=== PATIENT | male | born 1955 | race Caucasian/White ===

== ENCOUNTER 2019-04-07 17:48 | Inpatient (IN) | payer OTHER ==
[2019-04-07] MEDS ORDERED: methylPREDNISolone 125 MG* 2 ML VIAL IV ONE (19:59)
[2019-04-07] MEDS ORDERED: Albuterol/Ipratropium NEB.SOL* Albuterol 2.5 MG/Ipratropium 0.5 MG 3 ML INH ONE (19:59)
[2019-04-07 20:04] LABS: Hematocrit 62 % (42-52); Hemoglobin 21.5 g/dL (14.0-18.0); Mean Corpuscular HGB Conc 35 g/dL (31-36); Mean Corpuscular Hemoglobin 34 pg (27-31); Mean Corpuscular Volume 97 fL (80-94); Mean Platelet Volume 9.4 fL (7.4-10.4); Platelet Count 262 10^3/uL (150-450); Red Blood Count 6.42 10^6 /uL (4.18-5.48); Red Cell Distribution Width 15 % (10-15)
[2019-04-07 20:08] LABS: Albumin 4.7 g/dL (3.2-5.2); Albumin/Globulin Ratio 0.9 (1-3); C Reactive Protein 72.27 mg/L (<8.01); Calcium 10.3 mg/dL (8.6-10.3); EGFR African American 83.8 (>60); EGFR Non-African American 69.3 (>60); Potassium 4.9 mmol/L (3.5-5.0); Total Bilirubin 2.4 mg/dL (0.2-1.0); Total Protein 9.7 g/dL (6.4-8.9)
[2019-04-07 20:15] LABS: Troponin I 0.04 ng/mL (<0.04)
[2019-04-07] MEDS ORDERED: Azithromycin 500 mg/250 ml NS 500 MG/250 ML BAG IVPB ONE (21:14)
[2019-04-07] MEDS ORDERED: NS 0.9% 1000 ML** 1,000 ML IV ONE ×2 (21:14→22:36)
--- NOTE | 2019-04-07 21:14 | ED ---
Shortness of Breath - HPI Summary HPI Summary: Patient with history of COPD and home O2 when necessary complains of increase in chronic cough, mild increase in chronic SOB, chills sweats, sore throat and decreased O2 saturation. Patient states baseline O2 saturation on room air 90- 94%. Today the patient O2 sats between 85% per respiratory therapist that visits patient at house. Denies fever, CP, and/V/D, abdominal pain, change in urine, change in BM, increase in peripheral edema. Medical history COPD, HTN, hyperlipidemia. - History of Current Complaint Chief Complaint: EDShortnessOfBreath Time Seen by Provider: 04/07/19 18:31 Hx Obtained From: Patient Onset/Duration: Gradual Onset, Lasting Days Timing: Constant Current Severity: Mild Dyspnea At: Exertion Alleviating Factors: Nothing Associated Signs & Symptoms: Cough (Nonproductive), Chills - Allergy/Home Medications Allergies/Adverse Reactions: Allergies Allergy/AdvReac Type Severity Reaction Status Date / Time No Known Allergies Allergy Verified 09/03/14 09:58 Home Medications: Home Medications Albuterol HFA INHALER* [Ventolin HFA Inhaler*] 2 puff INH Q6H PRN 04/07/19 [ History Confirmed 04/07/19] Atenolol TAB* [Tenormin TAB* 25 MG] 25 mg PO DAILY 04/07/19 [History Confirmed 04/07/19] Pravastatin (NF) [Pravachol (NF)] 40 mg PO DAILY 04/07/19 [History Confirmed ] Tiotropium CAP.INH (NF) [Spiriva CAP.INH*] 1 inh INH DAILY 04/07/19 [History Confirmed 04/07/19] PMH/Surg Hx/FS Hx/Imm Hx Endocrine/Hematology History: Denies: Hx Anticoagulant Therapy Cardiovascular History: Reports: Hx Hypercholesterolemia, Hx Hypertension Respiratory History: Reports: Hx Chronic Obstructive Pulmonary Disease (COPD) History: Denies: Hx Dialysis Sensory History: Denies: Hx Eye Prosthesis Opthamlomology History: Denies: Hx Legally Blind EENT History: Denies: Hx Deafness - Surgical History Surgery Procedure, Year, and Place: R knee tendon repair, R foot foreign object removal Infectious Disease History: No Infectious Disease History: Denies: Traveled Outside the [place] in Last 30 Days - Family History Known Family History: Positive: Cardiac Disease, Diabetes - Social History Alcohol Use: None Substance Use Type: Reports: None Hx Tobacco Use: Yes Smoking Status (MU): Current Some Day Smoker Type: Cigarettes Review of Systems Positive: Chills Eyes: Negative ENT: Negative Cardiovascular: Negative Positive: Shortness Of Breath, Cough Gastrointestinal: Negative Genitourinary: Negative Musculoskeletal: Negative Skin: Negative Neurological: Negative Psychological: Normal All Other Systems Reviewed And Are Negative: Yes Physical Exam - Summary Physical Exam Summary: Mild bilateral pedal edema. Lung sounds clear but decreased. Triage Information Reviewed: Yes Vital Signs On Initial Exam: Initial Vitals Temp Pulse Resp BP Pulse Ox 99.2 F 77 21 128/54 89 04/07/19 18:08 04/07/19 18:08 04/07/19 18:08 04/07/19 18:08 04/07/19 18:08 Vital Signs Reviewed: Yes Appearance: Positive: Well-Appearing Skin: Positive: Warm Head/Face: Positive: Normal Head/Face Inspection Eyes: Positive: Normal ENT: Positive: Normal ENT inspection Neck: Positive: Supple Respiratory/Lung Sounds: Positive: Decreased Breath Sounds Cardiovascular: Positive: Normal Abdomen Description: Positive: Nontender Musculoskeletal: Positive: Normal Neurological: Positive: Normal Psychiatric: Positive: Normal AVPU Assessment: Alert - Monet Coma Scale Best Eye Response: 4 - Spontaneous Best Motor Response: 6 - Obeys Commands Best Verbal Response: 5 - Oriented Coma Scale Total: 15 Procedures - Sedation Patient Received Moderate/Deep Sedation with Procedure: No Diagnostics - Vital Signs Vital Signs Temp Pulse Resp BP Pulse Ox 04/07/19 20:29 101.1 F 04/07/19 20:00 108 32 82 04/07/19 19:44 102 34 165/75 84 04/07/19 19:13 98 34 121/94 85 04/07/19 19:11 30 04/07/19 18:42 76 19 137/54 93 04/07/19 18:12 80 23 128/54 91 04/07/19 18:11 79 23 92 04/07/19 18:08 99.2 F 77 21 128/54 89 - Laboratory Lab Results: Lab Results 04/07/19 04/07/19 04/07/19 Range/Units 19:38 19:38 19:38 WBC 24.0 H (3.5-10.8) 10^3/uL RBC 6.42 H (4.18-5.48) 10^6 /uL Hgb 21.5 H (14.0-18.0) g/dL Hct 62 H (42-52) % MCV 97 H (80-94) fL MCH 34 H (27-31) pg MCHC 35 (31-36) g/dL RDW 15 (10-15) % Plt Count 262 (150-450) 10^3/uL MPV 9.4 (7.4-10.4) fL Neut % (Auto) Pending Lymph % (Auto) Pending Troup % (Auto) Pending Eos % (Auto) Pending Baso % (Auto) Pending Absolute Neuts (auto) Pending Absolute Lymphs (auto) Pending Absolute Monos (auto) Pending Absolute Eos (auto) Pending Absolute Basos (auto) Pending Absolute Nucleated RBC Pending Nucleated RBC % Pending D-Dimer, Quantitative (Less Than 230) ng/mL Sodium 135 (135-145) mmol/L Potassium 4.9 (3.5-5.0) mmol/L Chloride 96 L (101-111) mmol/L Carbon Dioxide 28 (22-32) mmol/L Anion Gap 11 (2-11) mmol/L BUN 13 (6-24) mg/dL Creatinine 1.08 (0.67-1.17) mg/dL Est GFR ( Amer) 83.8 (>60) Est GFR (Non-Af Amer) 69.3 (>60) BUN/Creatinine Ratio 12.0 (8-20) Glucose 105 H (70-100) mg/dL Calcium 10.3 (8.6-10.3) mg/dL Total Bilirubin 2.40 H (0.2-1.0) mg/dL AST 21 (13-39) U/L ALT 19 (7-52) U/L Alkaline Phosphatase 129 H (34-104) U/L Troponin I (<0.04) ng/mL C-Reactive Protein 72.27 H (<8.01) mg/L B-Natriuretic Peptide 708 H (<=100) pg/mL Total Protein 9.7 H (6.4-8.9) g/dL Albumin 4.7 (3.2-5.2) g/dL Globulin 5.0 H (2-4) g/dL Albumin/Globulin Ratio 0.9 L (1-3) 04/07/19 04/07/19 Range/Units 19:38 19:38 WBC (3.5-10.8) 10^3/uL RBC (4.18-5.48) 10^6 /uL Hgb (14.0-18.0) g/dL Hct (42-52) % MCV (80-94) fL MCH (27-31) pg MCHC (31-36) g/dL RDW (10-15) % Plt Count (150-450) 10^3/uL MPV (7.4-10.4) fL Neut % (Auto) Lymph % (Auto) Troup % (Auto) Eos % (Auto) Baso % (Auto) Absolute Neuts (auto) Absolute Lymphs (auto) Absolute Monos (auto) Absolute Eos (auto) Absolute Basos (auto) Absolute Nucleated RBC Nucleated RBC % D-Dimer, Quantitative 479 H (Less Than 230) ng/mL Sodium (135-145) mmol/L Potassium (3.5-5.0) mmol/L Chloride (101-111) mmol/L Carbon Dioxide (22-32) mmol/L Anion Gap (2-11) mmol/L BUN (6-24) mg/dL Creatinine (0.67-1.17) mg/dL Est GFR ( Amer) (>60) Est GFR (Non-Af Amer) (>60) BUN/Creatinine Ratio (8-20) Glucose (70-100) mg/dL Calcium (8.6-10.3) mg/dL Total Bilirubin (0.2-1.0) mg/dL AST (13-39) U/L ALT (7-52) U/L Alkaline Phosphatase (34-104) U/L Troponin I 0.04 H* (<0.04) ng/mL C-Reactive Protein (<8.01) mg/L B-Natriuretic Peptide (<=100) pg/mL Total Protein (6.4-8.9) g/dL Albumin (3.2-5.2) g/dL Globulin (2-4) g/dL Albumin/Globulin Ratio (1-3) Result Diagrams: 04/07/19 19:38 04/07/19 19:38 Lab Statement: Any lab studies that have been ordered have been reviewed, and results considered in the medical decision making process. Course/Dx - Course Course Of Treatment: Patient with history of COPD and home O2 when necessary complains of increase in chronic cough, mild increase in chronic SOB, chills sweats, sore throat and decreased O2 saturation. Patient states baseline O2 saturation on room air 90-94%. Today the patient O2 sats between 85% per respiratory therapist that visits patient at house. Denies fever, CP, and/V/D, abdominal pain, change in urine, change in BM, increase in peripheral edema. Medical history COPD, HTN, hyperlipidemia. Patient O2 sats fluctuating. 86% on room air. 92% on 3 L. respiration rate between 18 and 30. Temperature 101.3. Heart rate 112. Blood pressure stable. WBC 24. Hemoglobin 12.5. D- dimer 479. CTA negative for PE. Total Bili 2.3. Troponin 1 0.04. Troponin 2 0.03. BNP 708. Most recent prior labs on file from 2015, all normal. Chest x- ray shows no acute process. EKG sinus tachycardia, with rate 112, similar to prior. Patient admitted to hospitalist for hypoxia, respiratory infection, sepsis. Rocephin 1 g IV. Azithromycin 500 mg IV. 2 L normal saline. - Diagnoses Provider Diagnoses: Sepsis, Respiratory infection, Hypoxia Discharge ED - Sign-Out/Discharge Documenting (check all that apply): Patient Departure - Discharge Plan Condition: Fair Disposition: ADMITTED TO [facility] - Billing Disposition and Condition Condition: FAIR Disposition: Admitted to [facility]
[2019-04-07] MEDS ORDERED: cefTRIAXone(*) 1 GM in NS 0.9% 50 ML* 50 ML IVPB ONE (21:15)
[2019-04-07 21:16] LABS: ABS Basophils 0.1 10^3/ul (0-0.2); ABS Lymphocytes 1.2 10^3/ul (1.0-4.8); ABS Monocytes 0.9 10^3/ul (0-0.8); ABS Neutrophils 21.8 10^3/ul (1.5-7.7); Eosinophil % 0.1 %; Lymphocyte % 5.1 %; Nucleated Red Blood Cells % 0.1
[2019-04-07] MEDS ORDERED: Iohexol 350* (CONTRAST) 500 ML MDV IV ONE (21:19)
[2019-04-07 21:54] LABS: Urine Appearance Clear; Urine Bacteria Absent (Absent); Urine Bilirubin Negative (Negative); Urine Blood 1+ (Negative); Urine Color Amber; Urine Glucose Negative (Negative); Urine Ketones Negative (Negative); Urine Nitrite Negative (Negative); Urine Protein 3+(>=500 mg/dL) (Negative); Urine Red Blood Cell Trace(0-2/hpf) (Absent); Urine Specific Gravity 1.016 (1.010-1.030); Urine Urobilinogen Negative (Negative); Urine White Blood Cell Trace(0-5/hpf) (Absent)
[2019-04-07] MEDS ORDERED: Acetaminophen TAB* 325 MG PO PRN (22:42)
[2019-04-07] MEDS: Atorvastatin* 40 MG TAB PO SCH (22:42)
[2019-04-08] MEDS: Enoxaparin(*) 40 MG/0.4 ML SYR SUBCUT SCH ×2 (01:00→21:38)
[2019-04-08] MEDS: Aspirin 81 mg CHEW TAB* 81 MG TAB.CHEW PO SCH ×2 (01:00→08:55)
--- NOTE | 2019-04-08 02:39 | HP ---
HISTORY AND PHYSICAL: DATE OF ADMISSION: 04/07/19 ADMITTING PROVIDER: Ghulam Denney MD PRIMARY CARE PROVIDER: Dr. Tu Villanueva of the CT System CHIEF COMPLAINT: Shortness of breath, chills, productive cough, stomach upset. HISTORY OF PRESENT ILLNESS: Adrian Chapman is a 64-year-old male with past medical history of COPD with chronic obstructive pulmonary disease and chronic intermittent oxygen use( 1-2 L p.r.n. and at q.h.s)., hypertension, morbid obesity, chronic constipation. He has been in his normal state of health, but has had some increased lower extremity edema for the last few days. He developed chills and some feeling of being sick to his stomach a few days ago which self- resolved and then chills returned on the morning of admission and he has been requiring more oxygen at home. His respiratory therapist noted him to be desatting to 84% to 85% on his 1 to 2 L. He denies any chest pain, palpitations. He has been more short of breath over the last few days. He has never seen a numerical tool programmer or a locomotive repairer diesel or had pulmonary function test done or an echocardiogram done per his knowledge. This has been a few months since he last saw Dr. Villanueva and within the last year or two his red blood cell count was noted to be elevated. [place] [facility] included a temperature of 99.2, heart rate 77, blood pressure 120/54, satting 89 % on 2 L. Chest x-ray formal read is pending, but concern for some pulmonary edema per my read. He had a leukocytosis of 24.0, hemoglobin 21.5, hematocrit of 62, BNP of 708, CRP of 72, initial troponin of 0.04, T. bili of 2.40. He was referred to hospitalist service for acute on chronic hypoxic respiratory failure and has since had a fever of 101.1 and became tachycardic to 110. The D -dimer was asked to be added has returned moderately elevated at [address] chest angiogram revealed no pulmonary embolism but did find some mild interstitial prominence with minimal patchy infiltrates and fibro-atelectatic changes and there is a focal atelectasis or consolidation in the medial basal left lower lobe. No borderline mediastinal or hilar nodes. He got ceftriaxone and azithromycin in the emergency room. Unfortunately, blood cultures were not obtained before antibiotics were delivered. . He was given 1 L of normal saline bolus in the emergency room. PAST MEDICAL HISTORY: 1. COPD with chronic intermittent hypoxic respiratory failure. 2. Hypertension. 3. Hyperlipidemia. 4. Obesity. MEDICATIONS: Include (this is somewhat incomplete/unverified list as he is a poor historian): 1. Albuterol 2 puffs inhaled q.6 hours p.r.n. 2. Spiriva 1 inhaled daily. 3. Pravastatin 40 mg p.o. daily. 4. Atenolol 25 mg p.o. daily. 5. Claritin 10 mg p.o. daily. 6. He also has another inhaler, possibly Dulera which he uses daily. ALLERGIES: No known drug allergies. FAMILY HISTORY: His mother at 57 of acute kidney failure. Father at age 49 of myocardial infarction. He has 2 sisters and 2 sons. SOCIAL HISTORY: The patient is a former smoker of 25 years, one and half packs per day quit 5 years ago. He denies any current alcohol or drug use. Formerly recreational marijuana. He is on disability. He lives with 2 roommates and desires one of them Jolly Amador to be his medical surrogate, . He desires to be a DNR/DNI. REVIEW OF SYSTEMS: A complete 14-point review of systems was negative, except as per HPI. He denies any abdominal pain. He does sleep in the hospital bed for last 5 years propped up. He generally does not have any dyspnea on exertion with stairs. He denies any changes in weight and he does have a blood pressure cuff, he says it is usually well controlled at home. PHYSICAL EXAMINATION GENERAL APPEARANCE: In no acute distress, but unkempt appearing with the long toenails and very dirty feet. VITAL SIGNS: Initially, 99.2, T max of 101.1, heart rate 78, heart rate max of 110, respiratory between 18 and 32, blood pressure initially 128/54, low at 82/ 53. HEENT: Normocephalic, atraumatic. Pupils are equal, round, and reactive to light. Extraocular motions are intact. No scleral icterus. NECK: Supple. LUNGS: With some rhonchi at the left mid and lower lungs and rales at bilateral bases and slight expiratory wheeze. CARDIAC: Tachycardic, regular rhythm. Regular rate. No murmurs, rubs, or gallops. Though somewhat difficult exam. ABDOMEN: Obese, soft, nontender, slightly distended. No rebound or guarding. EXTREMITIES: Warm, well perfused. There is 1+ edema bilaterally. NEURO: Cranial nerves II through XII grossly intact. Moves all extremities. DIAGNOSTIC STUDIES/LAB DATA: Labs: White count 24.0, RBC max 6.42, hemoglobin 21.5, hematocrit 62, MCV 97, platelets 262. Absolute neutrophils 21.8, D-dimer 478. Sodium 135, potassium 4.9, chloride 96, carbon dioxide 28, BUN 13, creatinine 1.08, glucose 105. Total bili 2.4, calcium 10.3, AST 21, ALT 19, alk phos 129. Troponin 0.04, CRP 72, BNP 708. Total protein 9.7, albumin 4.7, globulin 5.0, Urinalysis, 3+ protein, 1+ blood. Imaging: Chest x-ray formal read pending, but per my read consistent with some pulmonary interstitial edema. CTA chest demonstrated: 1. mild interstitial prominence with minimal patchy infiltrates and fibro- atelectatic change. There is a focal atelectasis or consolidation in the middle base of left lower lobe. 2. Borderline mediastinal and hilar nodes. 3. No essential pulmonary embolism is identified. EKG demonstrates sinus tachycardia. Normal axis. T-wave inversions in V1 through V3. Some ST depressions in V3. T-wave inversions in III and AVF. QTc 426. ASSESSMENT AND PLAN: Adrian Chapman is a 64-year-old male with a past history of chronic obstructive pulmonary disease with chronic intermittent hypoxic respiratory failure, hypertension, obesity, note of elevated RBC in the last few years, but he is unfamiliar with the term polycythemia vera. He is presenting with acute on chronic hypoxic respiratory failure and sepsis developing fevers in the emergency room, tachycardia, leukocytosis and possible infiltrate in the medial basilar left lower lobe. Unfortunately, blood cultures were not obtained prior to administration of ceftriaxone, azithromycin. We will continue those. Add Strep pneumoniae and legionella urine antigen testing. Get a sputum culture if able. Status post 1 L normal saline for blood pressure dip. I am going to be cautious with IV fluids given his elevated BNP, concern for new onset heart failure, as well get an echocardiogram for that. He has quite elevated RBC, hemoglobin, and hematocrit levels as well as paraprotein gap of 5.0. I am going to get serum EPO and JAK2 mutation antibody, SPEP, UPEP. Try to get records from Dr. Villanueva though it probably will be challenging over the weekend. For his COPD, continue Spiriva, albuterol p.r.n. and Dulera (which he may or may not be on at home). We will try to clarify what his daily inhaler is. I am not starting him on steroids at this time, but could consider that depending on clinical course. I am going to get also a lipid panel and hemoglobin A1c. Given his elevated troponin, we will trend troponin every 3 hours. He denies any chest pain. We will give statin formulary substitute of atorvastatin 40 mg , also give him aspirin 81 mg now for his potential polycythemia vera and elevated troponin. I am also getting an echocardiogram for his new suspected heart failure. He has elevated total bili, we will repeat LFTs in the morning, currently no abdominal pain. There may be some hepatic congestion. He can eat a heart healthy diet. Desires his roommate Jolly Amador [phone] to be his medical surrogate. He desires to be DNR/DNI. We will have to fill out a new [facility]OL[facility] paperwork for him. [id number]/[facility] #: [id number] JAVIER
[2019-04-08 06:49] LABS: Hematocrit 53 % (42-52); Hemoglobin 18.1 g/dL (14.0-18.0); Mean Corpuscular HGB Conc 34 g/dL (31-36); Mean Corpuscular Hemoglobin 33 pg (27-31); Mean Corpuscular Volume 96 fL (80-94); Mean Platelet Volume 9.3 fL (7.4-10.4); Platelet Count 202 10^3/uL (150-450); Red Blood Count 5.46 10^6 /uL (4.18-5.48); Red Cell Distribution Width 15 % (10-15); White Blood Count 26.9 10^3/uL (3.5-10.8)
[2019-04-08 06:55] LABS: INR 1.57 (0.82-1.09)
[2019-04-08 07:08] LABS: Albumin 3.3 g/dL (3.2-5.2); Albumin/Globulin Ratio 0.9 (1-3); BUN/Creatinine Ratio 19.8 (8-20); Calcium 8.7 mg/dL (8.6-10.3); EGFR African American 116.8 (>60); EGFR Non-African American 96.6 (>60); Globulin 3.5 g/dL (2-4); HDL Cholesterol 19.4 mg/dL; Indirect Bilirubin 1.3 mg/dL (0.3-1.0); Potassium 4.1 mmol/L (3.5-5.0); Total Bilirubin 1.9 mg/dL (0.2-1.0); Total Protein 6.8 g/dL (6.4-8.9)
[2019-04-08 07:20] LABS: ABS Neutrophils 23.2 10^3/ul (1.5-7.7)
[2019-04-08 07:21] LABS: ABS Basophils 0.1 10^3/ul (0-0.2); ABS Lymphocytes 1.8 10^3/ul (1.0-4.8); ABS Monocytes 1.7 10^3/ul (0-0.8); Eosinophil % 0.1 %; Lymphocyte % 6.8 %
[2019-04-08] MEDS: Mometasone/Formoter 200/5 MDI INH SCH ×2 (08:49→20:00)
[2019-04-08] MEDS: Cetirizine* 10 MG TAB PO SCH (08:55)
[2019-04-08] MEDS ORDERED: Influenza VAC *QUAD* 2019-20* 0.5 ML SYRINGE IM ONE (09:00)
[2019-04-08] MEDS ORDERED: Pneumococcal *Vac Polyvalent 0.5 ML VIAL IM ONE (09:00)
[2019-04-08] MEDS: SPIRIVA Respimat* (tiotropium) 2.5 mcg/inh Inhaler INH SCH (11:50)
[2019-04-08] MEDS ORDERED: Senna TAB 8.6 mg* TAB PO PRN (13:29)
[2019-04-08] MEDS ORDERED: Docusate LIQ* 100 MG/10 ML UDC PO PRN (13:35)
--- NOTE | 2019-04-08 13:36 | PN ---
Subjective Date of Service: 04/08/19 Interval History: HD 2 on 04/08 64 y/o M with PMH of COPD-home O2(prn at day and 1.5-2L) with chronic respiratory failure, HTN, Morbid Obesity,Chronic constipation presented with increasing LE edema, SOB and chills and cold. Found to have tachycardia, fever and leucocytosis and elevated CRP. D/D- sepsis 2/2 pneumonia, CHF No acute overnight events. VS stable Feels he is improving a lot still has some SOB; has mild productive cough for 1 month No chest pain, fever or palpitation. Objective Active Medications: Acetaminophen (Tylenol Tab*) 650 mg PO Q6H PRN PRN Reason: PAIN - MILD Aspirin (Aspirin 81 Mg Chew Tab*) 81 mg PO DAILY [facility] Last Admin: 04/08/19 08:55 Dose: 81 mg Atorvastatin Calcium (Lipitor*) 40 mg PO 1700 [facility] Last Admin: 04/07/19 22:42 Dose: 40 mg Cetirizine HCl (Zyrtec*) 10 mg PO DAILY [facility] Last Admin: 04/08/19 08:55 Dose: 10 mg Enoxaparin Sodium (Lovenox(*)) 40 mg SUBCUT BEDTIME [facility] Last Admin: 04/08/19 01:00 Dose: 40 mg Ceftriaxone Sodium 1 gm/ (Sodium Chloride) 50 mls @ 100 mls/hr IVPB Q24H DEWEY Azithromycin (Zithromax 500 Mg/250 Ml) 500 mg in 250 mls @ 250 mls/hr IVPB Q24H [facility] Mometasone Furoate/Formoterol Fumar (Dulera 200/5 Mdi*) 2 puff INH BID [facility] Last Admin: 04/08/19 08:49 Dose: 2 puff Senna/Docusate Sodium (Sennokot-S(Nf)) 1 tab PO DAILY PRN PRN Reason: CONSTIPATION Sodium Chloride (Sodium Chloride 0.65% Nasal [place]*) 2 spray BOTH NARES QID [facility] Tiotropium [place] (Spiriva Respimat 2.5 Mcg) 2 puff INH DAILY [facility] Last Admin: 04/08/19 11:50 Dose: Not Given Vital Signs - 8 hr 04/08/19 04/08/19 04/08/19 07:15 08:00 08:50 Temperature 97.2 F Pulse Rate 73 80 Respiratory 18 18 16 Rate Blood Pressure 99/55 (mmHg) O2 Sat by Pulse 95 94 Oximetry 04/08/19 11:15 Temperature 98.3 F Pulse Rate 67 Respiratory 16 Rate Blood Pressure 111/55 (mmHg) O2 Sat by Pulse 96 Oximetry Oxygen Devices in Use Now: OxyMask Exam: Patient is sitting on a bed with no acute distress. HEENT: Normocephalic and atraumatic Lungs: Crackle heard on b/l lower lungs; Left>Right Heart: S1/S2 heard with no murmur Abdomen: SOft, distended and nontender. Normal BS heard Extremities: 2+ pitting edema on b/l lower limb with chronic venous stasis changes Neuro: Alert, oriented and conscious Result Diagrams: 04/08/19 06:19 04/08/19 06:19 Additional Lab and Data: Lab Results 04/07/19 04/07/19 04/07/19 Range/Units 19:38 19:38 19:38 WBC 24.0 H (3.5-10.8) 10^3/uL RBC 6.42 H (4.18-5.48) 10^6 /uL Hgb 21.5 H (14.0-18.0) g/dL Hct 62 H (42-52) % MCV 97 H (80-94) fL MCH 34 H (27-31) pg MCHC 35 (31-36) g/dL RDW 15 (10-15) % Plt Count 262 (150-450) 10^3/uL MPV 9.4 (7.4-10.4) fL Neut % (Auto) Pending Lymph % (Auto) Pending Clarke % (Auto) Pending Eos % (Auto) Pending Baso % (Auto) Pending Absolute Neuts (auto) Pending Absolute Lymphs (auto) Pending Absolute Monos (auto) Pending Absolute Eos (auto) Pending Absolute Basos (auto) Pending Absolute Nucleated RBC Pending Nucleated RBC % Pending D-Dimer, Quantitative (Less Than 230) ng/mL Sodium 135 (135-145) mmol/L Potassium 4.9 (3.5-5.0) mmol/L Chloride 96 L (101-111) mmol/L Carbon Dioxide 28 (22-32) mmol/L Anion Gap 11 (2-11) mmol/L BUN 13 (6-24) mg/dL Creatinine 1.08 (0.67-1.17) mg/dL Est GFR ( Amer) 83.8 (>60) Est GFR (Non-Af Amer) 69.3 (>60) BUN/Creatinine Ratio 12.0 (8-20) Glucose 105 H (70-100) mg/dL Calcium 10.3 (8.6-10.3) mg/dL Total Bilirubin 2.40 H (0.2-1.0) mg/dL AST 21 (13-39) U/L ALT 19 (7-52) U/L Alkaline Phosphatase 129 H (34-104) U/L Troponin I (<0.04) ng/mL C-Reactive Protein 72.27 H (<8.01) mg/L B-Natriuretic Peptide 708 H (<=100) pg/mL Total Protein 9.7 H (6.4-8.9) g/dL Albumin 4.7 (3.2-5.2) g/dL Globulin 5.0 H (2-4) g/dL Albumin/Globulin Ratio 0.9 L (1-3) 04/07/19 04/07/19 Range/Units 19:38 19:38 WBC (3.5-10.8) 10^3/uL RBC (4.18-5.48) 10^6 /uL Hgb (14.0-18.0) g/dL Hct (42-52) % MCV (80-94) fL MCH (27-31) pg MCHC (31-36) g/dL RDW (10-15) % Plt Count (150-450) 10^3/uL MPV (7.4-10.4) fL Neut % (Auto) Lymph % (Auto) Clarke % (Auto) Eos % (Auto) Baso % (Auto) Absolute Neuts (auto) Absolute Lymphs (auto) Absolute Monos (auto) Absolute Eos (auto) Absolute Basos (auto) Absolute Nucleated RBC Nucleated RBC % D-Dimer, Quantitative 479 H (Less Than 230) ng/mL Sodium (135-145) mmol/L Potassium (3.5-5.0) mmol/L Chloride (101-111) mmol/L Carbon Dioxide (22-32) mmol/L Anion Gap (2-11) mmol/L BUN (6-24) mg/dL Creatinine (0.67-1.17) mg/dL Est GFR ( Amer) (>60) Est GFR (Non-Af Amer) (>60) BUN/Creatinine Ratio (8-20) Glucose (70-100) mg/dL Calcium (8.6-10.3) mg/dL Total Bilirubin (0.2-1.0) mg/dL AST (13-39) U/L ALT (7-52) U/L Alkaline Phosphatase (34-104) U/L Troponin I 0.04 H* (<0.04) ng/mL C-Reactive Protein (<8.01) mg/L B-Natriuretic Peptide (<=100) pg/mL Total Protein (6.4-8.9) g/dL Albumin (3.2-5.2) g/dL Globulin (2-4) g/dL Albumin/Globulin Ratio (1-3) Assess/Plan/Problems-Billing Assessment: 64 y/o M with h/o COPD, Chronic respiratory failure, HTN, Morbid obesity, chronic constipation presented with sepsis 2/2 to pneumonia with suspicion of CHF. on ceftriaxone and azithro(day 2 on 04/08) - Patient Problems (1) Sepsis Current Visit: Yes Status: Acute Comment: -fever, tachycardia and leucocytosis -lactic acid normal -blood culture sent -fever, tachy resolved -2/2 to pneumonia -IV fluid received -On ceftriaxone and azithro (day 2 on 04/08) (2) Pneumonia Current Visit: No Status: Acute Priority: High Onset Date: 09/01/14 Code (s): J18.9 - PNEUMONIA, UNSPECIFIED ORGANISM SNOMED Code(s): 747956707 Comment: -has cough for weeks; although mild productive -fever, chills and leucocytosis -crackles heard -CXR- cardiomegaly with possibility of CHF -CTA- Focal atelectaiss or consolidationin left lower lobe; borderline mediatinal and hilar nodes. -urine negative for legionella and strept -sputum stain- gram +ve cocci and bacilli and gram -ve bacilli -sputum culture pending -On ceftriaxone and azithro(day 2) (3) Swelling of lower extremity Current Visit: Yes Status: Acute Code(s): M79.89 - OTHER SPECIFIED SOFT TISSUE DISORDERS SNOMED Code(s): 320179030 Comment: - Has b/l lower extremity edema with b/l crackles with cxr showing chf and elevated BNP. -no past echo -elevated troponin- downtrending; could be demand ischemia; no chest pain -will order echo-pending (4) Polycythemia Current Visit: Yes Status: Acute Code(s): D75.1 - SECONDARY POLYCYTHEMIA SNOMED Code(s): 396680346 Comment: -hb 21.5 and hematocrit is 62 -on and off since 2014. -could be secondary absolute polycythemia; 2/2 to chronic pulmonary dz, OHS, LATANYA -r/o primary causes-JAK2 study pending -erythropoitein level pending. -given his obesity- may have undiagnosed LATANYA/OHS -will order overnight pulse oximetry (5) COPD (chronic obstructive pulmonary disease) Current Visit: No Status: Chronic Code(s): J44.9 - CHRONIC OBSTRUCTIVE PULMONARY DISEASE, UNSPECIFIED SNOMED Code(s): 91285231 Comment: - has history of COPD with chronic resp failure. -On home O2-1.5-2L; uses prn at day and every night; no wheezing at present -On spiriva, dulera andalbuterol inhaler prn -now on 4l of O2 (6) Hypertension Current Visit: Yes Status: Acute Code(s): I10 - ESSENTIAL (PRIMARY) HYPERTENSION SNOMED Code(s): 60582864 Comment: -On atenolol (7) Obesity Current Visit: No Status: Chronic Code(s): E66.9 - OBESITY, UNSPECIFIED SNOMED Code(s): 487758386 Comment: -BMI 47 -Counselled on healthy lifestyle (8) Elevated bilirubin Current Visit: Yes Status: Acute Code(s): R17 - UNSPECIFIED JAUNDICE SNOMED Code(s): 73544034 Comment: - Downtrending -Could be from undiagnosed heart failure or increased production from polycythemia or sepsis -will repeat it again tomoorow and see if worsening (9) DVT prophylaxis Current Visit: No Status: Acute Priority: Medium Onset Date: 09/01/14 Code(s): ZOD0093 - SNOMED Code(s): 303090869 Comment: -On lovenox (10) Full code status Current Visit: No Status: Acute Priority: Medium Onset Date: 09/01/14 Code(s): Z78.9 - OTHER SPECIFIED HEALTH STATUS SNOMED Code(s): 670716166 Status and Disposition: Inpatient Attending: Abe Casarez Attestation Documenting Resident: Adria Gonsalves Supervising Physician: Darryl Casarez Attestation: This service has been performed in part by a resident under the direction of a teaching physician.I, Darryl Casarez, performed the service, or was physically present during the critical, or regalado portions of the service, furnished by the resident. I participated in the management of the patient.
[2019-04-08] MEDS ORDERED: Albuterol HFA INHALER* 8 gm MDI INH PRN (14:33)
[2019-04-08] MEDS: Atorvastatin* 40 MG TAB PO SCH (17:56)
[2019-04-08] MEDS: Saline NASAL SPRAY 0.65%* BTL BOTH NARES SCH ×2 (17:57→21:37)
[2019-04-08] MEDS ORDERED: cefTRIAXone(*) 1 GM in NS 0.9% 50 ML* 50 ML IVPB SCH (21:00)
[2019-04-08] MEDS ORDERED: Azithromycin 500 mg/250 ml NS 500 MG/250 ML BAG IVPB SCH (22:00)
[2019-04-08] MEDS: Nystatin CREAM* 15 GM TUBE TOPICAL SCH (22:26)
[2019-04-09 07:55] LABS: ABS Basophils 0.1 10^3/ul (0-0.2); ABS Eosinophils 0.2 10^3/ul (0-0.6); ABS Lymphocytes 1.2 10^3/ul (1.0-4.8); ABS Neutrophils 14.5 10^3/ul (1.5-7.7); Eosinophil % 1.2 %; Hematocrit 52 % (42-52); Hemoglobin 17.6 g/dL (14.0-18.0); Mean Corpuscular HGB Conc 34 g/dL (31-36); Mean Corpuscular Hemoglobin 33 pg (27-31); Mean Corpuscular Volume 97 fL (80-94); Nucleated Red Blood Cells % 0.1; Platelet Count 188 10^3/uL (150-450); Red Blood Count 5.32 10^6 /uL (4.18-5.48); Red Cell Distribution Width 15 % (10-15)
[2019-04-09] MEDS: Mometasone/Formoter 200/5 MDI INH SCH (08:12)
[2019-04-09 08:14] LABS: Calcium 9.2 mg/dL (8.6-10.3); EGFR Non-African American 118.2 (>60); Potassium 4.1 mmol/L (3.5-5.0)
[2019-04-09] MEDS: Aspirin 81 mg CHEW TAB* 81 MG TAB.CHEW PO SCH (08:17)
[2019-04-09] MEDS: Cetirizine* 10 MG TAB PO SCH (08:17)
[2019-04-09] MEDS: Saline NASAL SPRAY 0.65%* BTL BOTH NARES SCH ×2 (08:17→13:47)
[2019-04-09] MEDS: Nystatin CREAM* 15 GM TUBE TOPICAL SCH ×2 (08:18→13:46)
[2019-04-09] MEDS ORDERED: SPIRIVA Respimat* (tiotropium) 2.5 mcg/inh Inhaler INH SCH (09:14)
[2019-04-09] MEDS: SPIRIVA Respimat* (tiotropium) 2.5 mcg/inh Inhaler INH SCH (09:25)
[2019-04-09 11:11] VITALS: BP 122/55
--- NOTE | 2019-04-09 23:16 | DS ---
CC: Dr. Villanueva at [facility]; Dr. Corbett; Dr. Estefania Dunn * DISCHARGE SUMMARY: DATE OF ADMISSION: 04/07/19 DATE OF DISCHARGE: 04/09/19 PRIMARY DIAGNOSIS: Sepsis due to pneumonia. SECONDARY DIAGNOSES: 1. Chronic obstructive pulmonary disease with chronic hypoxic respiratory failure. 2. Hypertension. 3. Hyperlipidemia. 4. Obesity, suspected obstructive sleep apnea. 5. Polycythemia, suspected polycythemia vera versus secondary polycythemia. 6. Paraproteinemia. 7. Suspected congestive heart failure. MEDICATIONS ON DISCHARGE: 1. Albuterol inhaler 2 puffs q.6 hours p.r.n. wheezing. 2. Atenolol 25 mg p.o. daily. 3. Budesonide/formoterol 160/4.5 two inhalations b.i.d. 4. Calcium polycarbophil tablets 625 mg p.o. b.i.d. 5. Claritin 10 mg p.o. daily. 6. Pravastatin 40 mg p.o. q.p.m. 7. Saline nasal spray as needed. 8. Senna with docusate 1 tab p.o. daily. 9. Spiriva 1 inhalation daily. 10. Acetaminophen as needed. 11. Aspirin 81 mg p.o. daily. 12. Cefuroxime 500 mg p.o. b.i.d. for 6 days. CONSULTATIONS: None. PROCEDURES: None. HOSPITAL COURSE: A 64-year-old man with COPD, presented to the emergency department with dyspnea, progressive swelling, productive cough. His initial white count was 24,000, CRP was 72, D-dimer was 478. CT angiogram of the chest showed mild interstitial prominence and some patchy infiltrates. No pulmonary embolism. There also was focal atelectasis or consolidation in the left lower lobe and some borderline mediastinal and hilar adenopathy. The patient's blood pressure was as low as 82/53 on admission and he required fluid bolus and treatment for sepsis, 30 mg per kg fluid bolus and initiation of ceftriaxone and azithromycin for pneumonia. Because of his peripheral edema that may be attributed to left-sided heart failure, cor pulmonale or venostasis, venous insufficiency, the patient was suspected to have heart failure. However, he has not required any diuresis and his oxygen requirement returned to approximately 3 L per minute, which is his baseline the next day after admission. Outpatient investigation of heart failure with echocardiogram would be reasonable. The patient improved nicely with his breathing and was able to be weaned down to 3 L nasal cannula which is his baseline oxygen need. The patient did have an overnight oxygen study, which showed that he was below 90% for 21% of the time. He very likely has sleep apnea and advised to see Dr. Corbett in followup for potential CPAP treatment. This may improve his cor pulmonale as well. Blood cultures were negative to date on discharge and Legionella and pneumococcus antigen urine was negative. MRSA was detected in his nasal swab. Gram-stain and culture of his sputum showed 4+ neutrophils, 2+ epithelial cells and Streptococcus parasanguinis as the predominant organism. This should be covered by cephalosporin and he is sent home with 6 days of cefuroxime. The patient's white count dropped from 24 to 17 and he had elevated hemoglobin on admission as well at 21.5. This did fell to 17.6 with hydration and oxygen. It is unclear at this time whether if the polycythemia is due to P vera or secondary polycythemia due to untreated sleep apnea and hypoxia. There was also a concern of paraprotein with elevated total protein and low albumin. Pending upon discharge are serum in urine, protein electrophoresis, JAK2 mutation analysis regarding the P vera and erythropoietin levels. DISPOSITION: To home. DIET: His diet should be low salt, low fat. ACTIVITY: As tolerated. CONDITION: Fair. STATUS: Inpatient. FOLLOWUP: He is advised to see Dr. Estefania Dunn for consultation regarding the polycythemia. TIME SPENT: I spent more than 45 minutes with the patient on the day of discharge and completing necessary paperwork. [id number]/[facility] #: [id number] [facility]ERYec[facility]
[2019-04-12 12:18] LABS: Albumin 3.2 g/dL (3.4-4.7); Albumin/Globulin Ratio 0.78; Total Protein(PEP) 7.2 g/dL (6.3 - 7.9)
[2019-04-12 13:14] LABS: Albumin 75 %; Gamma Globulin 7 %; Total Protein(PEP) Urine 186 mg/dL
== END 2019-04-09 15:12 | disposition home or self-care (01) | DRG 720 ==
LOC: ED 17:48 → MEDTELE 22:21
PROVIDERS: ADMIT Internal Medicine; ATTEND Internal Medicine
DX: A41.9 Sepsis, unspecified organism (principal); J96.21 Acute and chronic respiratory failure with hypoxia; J18.9 Pneumonia, unspecified organism; J96.11 Chronic respiratory failure with hypoxia; J44.0 Chronic obstructive pulmonary disease with (acute) lower respiratory infection; Z68.42 Body mass index [BMI] 45.0-49.9, adult; R17 Unspecified jaundice; J98.11 Atelectasis; I11.0 Hypertensive heart disease with heart failure; I50.9 Heart failure, unspecified; Z99.81 Dependence on supplemental oxygen; E66.01 Morbid (severe) obesity due to excess calories; D89.2 Hypergammaglobulinemia, unspecified; D75.1 Secondary polycythemia; E78.5 Hyperlipidemia, unspecified; G47.33 Obstructive sleep apnea (adult) (pediatric); Z66 Do not resuscitate; K59.09 Other constipation; Z79.51 Long term (current) use of inhaled steroids; Z79.899 Other long term (current) drug therapy; Z82.49 Family history of ischemic heart disease and other diseases of the circulatory system; Z87.891 Personal history of nicotine dependence
CPT/HCPCS: 36415; 71046; 71275; 80048; 80053; 80061; 80076; 81003; 81015; 81270; 82247; 82668; 83036; 83605; 83880; 84155; 84156; 84165; 84166; 84484; 85025; 85379; 85610; 86140; 87040; 87070; 87086; 87205; 87641; 87899; 90686; 90732; 93005; 94640; 94762; 96361; 96374; 99284; A9270-GY; J0456; J0696; J1650; J3535; Q9967

== ENCOUNTER 2021-02-18 12:33 | Inpatient (IN) ==
[2021-02-18] MEDS ORDERED: Cefepime 1 GM in Dextrose 1 GM/50 ML BAG IV ONE (13:25)
[2021-02-18] MEDS ORDERED: Vancomycin 1,500 MG in NS 0.9% 250 ml 250 ML IVPB ONE (13:25)
[2021-02-18 16:46] LABS: ABS Basophils 0.1 10^3/ul (0-0.2); ABS Eosinophils 0.3 10^3/ul (0-0.6); ABS Lymphocytes 1.2 10^3/ul (1.0-4.8); ABS Neutrophils 8.6 10^3/ul (1.5-7.7); Eosinophil % 2.6 %; Hematocrit 52 % (42-52); Hemoglobin 17.5 g/dL (14.0-18.0); Mean Corpuscular HGB Conc 34 g/dL (31-36); Mean Corpuscular Hemoglobin 33 pg (27-31); Mean Corpuscular Volume 100 fL (80-94); Mean Platelet Volume 8.3 fL (7.4-10.4); Nucleated Red Blood Cells % 0.3; Platelet Count 319 10^3/uL (150-450); Red Blood Count 5.24 10^6 /uL (4.18-5.48); Red Cell Distribution Width 15 % (10-15); White Blood Count 11.1 10^3/uL (3.5-10.8)
[2021-02-18 17:03] LABS: Albumin 3.6 g/dL (3.2-5.2); Albumin/Globulin Ratio 0.7 (1-3); C Reactive Protein 55.02 mg/L (<8.01); Calcium 9.8 mg/dL (8.6-10.3); EGFR African American 135.2 (>60); EGFR Non-African American 111.7 (>60); Globulin 5.1 g/dL (2-4); Potassium 3.8 mmol/L (3.5-5.0); Total Bilirubin 0.9 mg/dL (0.2-1.0); Total Protein 8.7 g/dL (6.4-8.9)
[2021-02-18] MEDS ORDERED: Albuterol 2.5mg/3 ml (0.083%) NEB.SOLN INH PRN (18:01)
[2021-02-18] MEDS: Mometasone/Formoter 200/5 MDI INH SCH (22:37)
[2021-02-18] MEDS: Heparin 5000 UNITS/ML 1 mL VIAL SUBCUT SCH (22:56)
[2021-02-18] MEDS: ceFAZolin 1 GM ADVAN 1 GM in NS 0.9% 50 ML 50 ML IVPB SCH (23:08)
[2021-02-19] MEDS: Heparin 5000 UNITS/ML 1 mL VIAL SUBCUT SCH ×3 (05:32→21:58)
[2021-02-19] MEDS: ceFAZolin 1 GM ADVAN 1 GM in NS 0.9% 50 ML 50 ML IVPB SCH ×3 (05:32→21:59)
[2021-02-19 07:10] LABS: ABS Basophils 0.1 10^3/ul (0-0.2); ABS Eosinophils 0.3 10^3/ul (0-0.6); ABS Lymphocytes 1.2 10^3/ul (1.0-4.8); ABS Monocytes 0.8 10^3/ul (0-0.8); ABS Neutrophils 5.6 10^3/ul (1.5-7.7); Eosinophil % 3.9 %; Hematocrit 48 % (42-52); Hemoglobin 16.3 g/dL (14.0-18.0); Mean Corpuscular HGB Conc 34 g/dL (31-36); Mean Corpuscular Hemoglobin 34 pg (27-31); Mean Corpuscular Volume 99 fL (80-94); Mean Platelet Volume 8.6 fL (7.4-10.4); Nucleated Red Blood Cells % 0.1; Platelet Count 290 10^3/uL (150-450); Red Blood Count 4.83 10^6 /uL (4.18-5.48); Red Cell Distribution Width 15 % (10-15); White Blood Count 8.1 10^3/uL (3.5-10.8)
[2021-02-19 07:11] LABS: Calcium 9.1 mg/dL (8.6-10.3); EGFR African American 155.1 (>60); EGFR Non-African American 128.2 (>60); Potassium 3.6 mmol/L (3.5-5.0)
[2021-02-19] MEDS: Mometasone/Formoter 200/5 MDI INH SCH ×2 (07:49→19:45)
[2021-02-19] MEDS: Nystatin TOP POWDER 15 GM BTL TOPICAL SCH (22:09)
[2021-02-20] MEDS: Heparin 5000 UNITS/ML 1 mL VIAL SUBCUT SCH (06:06)
[2021-02-20] MEDS: ceFAZolin 1 GM ADVAN 1 GM in NS 0.9% 50 ML 50 ML IVPB SCH (06:07)
[2021-02-20] MEDS: Mometasone/Formoter 200/5 MDI INH SCH (07:44)
[2021-02-20 07:52] VITALS: BP 110/50
[2021-02-20] MEDS: Nystatin TOP POWDER 15 GM BTL TOPICAL SCH (09:35)
== END 2021-02-20 11:05 | disposition home or self-care (01) | DRG 383 ==
LOC: MED 12:33 → ED 12:33 → SUATTDRO 18:01
PROVIDERS: ADMIT Internal Medicine; ATTEND Hospitalist

== ENCOUNTER 2021-07-09 19:18 | Inpatient (IN) ==
[2021-07-09 20:53] LABS: ABS Lymphocytes 0.3 10^3/ul (1.0-4.8); ABS Monocytes 0.6 10^3/ul (0-0.8); ABS Neutrophils 13.8 10^3/ul (1.5-7.7); Hematocrit 48 % (42-52); Lymphocyte % 2.3 %; Mean Corpuscular HGB Conc 33 g/dL (31-36); Mean Corpuscular Hemoglobin 34 pg (27-31); Mean Corpuscular Volume 100 fL (80-94); Mean Platelet Volume 10.3 fL (7.4-10.4); Platelet Count 143 10^3/uL (150-450); Red Blood Count 4.78 10^6 /uL (4.18-5.48); Red Cell Distribution Width 15 % (10-15); White Blood Count 14.7 10^3/uL (3.5-10.8)
[2021-07-09 21:05] LABS: Activated Partial Thrombo Time 37.4 seconds (26.0-38.0); INR 1.76 (0.86-1.15)
[2021-07-09 21:10] LABS: ALT 16 U/L (7-52); AST 27 U/L (13-39); Albumin 3.6 g/dL (3.2-5.2); Albumin/Globulin Ratio 0.8 (1-3); Alkaline Phosphatase 104 U/L (35-149); Anion Gap 7 mmol/L (2-11); Blood Urea Nitrogen 25 mg/dL (6-24); C Reactive Protein 170.78 mg/L (<8.01); CO2 Carbon Dioxide 29 mmol/L (22-32); Calcium 9.4 mg/dL (8.6-10.3); Chloride 99 mmol/L (101-111); Globulin 4.4 g/dL (2-4); Glucose 108 mg/dL (70-100); Potassium 4.1 mmol/L (3.5-5.0); Sodium 135 mmol/L (135-145); eGFR CKD-EPI 88.3 (>60)
[2021-07-09 21:16] LABS: Troponin I 0.05 ng/mL (<0.03)
[2021-07-09] MEDS ORDERED: Furosemide 40 mg/4 ml IV VIAL IV ONE (21:32)
[2021-07-09] MEDS ORDERED: Iodixanol (CONTRAST) 320 MG/ML 100 ML SDV IV ONE (21:46)
[2021-07-09] MEDS ORDERED: Albuterol 2.5mg/3 ml (0.083%) NEB.SOLN INH PRN (23:38)
[2021-07-09] MEDS ORDERED: cefTRIAXone 1 gm/50 mL NS BAG 1 GM/50 ML BAG IVPB SCH (23:45)
[2021-07-09] MEDS: Enoxaparin 40 MG/0.4 ML SYR SUBCUT SCH (23:56)
[2021-07-10] LABS: Urine Appearance Clear; Urine Color Yellow; Urine pH 7 (5-9)
[2021-07-10 00:01] LABS: Urine Bilirubin Negative (Negative); Urine Blood Negative (Negative); Urine Glucose Negative (Negative); Urine Ketones Negative (Negative); Urine Nitrite Negative (Negative); Urine Protein 1+(30 mg/dL) (Negative); Urine Urobilinogen Positive (Negative)
[2021-07-10 00:02] LABS: Urine Bacteria 1+ (Absent); Urine Red Blood Cell Trace(0-2/hpf) (Absent); Urine Squamous Epithelial Cell Present (Absent); Urine White Blood Cell Trace(0-5/hpf) (Absent)
[2021-07-10 01:06] LABS: Troponin I 0.06 ng/mL (<0.03)
[2021-07-10] MEDS: Nystatin TOP POWDER 15 GM BTL TOPICAL SCH ×3 (02:30→20:33)
[2021-07-10 06:32] LABS: ABS Lymphocytes 0.6 10^3/ul (1.0-4.8); ABS Monocytes 0.5 10^3/ul (0-0.8); ABS Neutrophils 11.2 10^3/ul (1.5-7.7); Hematocrit 47 % (42-52); Hemoglobin 15.8 g/dL (14.0-18.0); Lymphocyte % 4.8 %; Mean Corpuscular HGB Conc 34 g/dL (31-36); Mean Corpuscular Hemoglobin 34 pg (27-31); Mean Corpuscular Volume 101 fL (80-94); Mean Platelet Volume 10.3 fL (7.4-10.4); Platelet Count 136 10^3/uL (150-450); Red Blood Count 4.67 10^6 /uL (4.18-5.48); Red Cell Distribution Width 15 % (10-15); White Blood Count 12.4 10^3/uL (3.5-10.8)
[2021-07-10 06:53] LABS: ALT 16 U/L (7-52); AST 27 U/L (13-39); Albumin 3.4 g/dL (3.2-5.2); Albumin/Globulin Ratio 0.8 (1-3); Alkaline Phosphatase 100 U/L (35-149); Anion Gap 8 mmol/L (2-11); Blood Urea Nitrogen 24 mg/dL (6-24); CO2 Carbon Dioxide 29 mmol/L (22-32); Chloride 99 mmol/L (101-111); Globulin 4.3 g/dL (2-4); Glucose 101 mg/dL (70-100); Potassium 3.7 mmol/L (3.5-5.0); Sodium 136 mmol/L (135-145); Total Protein 7.7 g/dL (6.4-8.9); eGFR CKD-EPI 86.1 (>60)
[2021-07-10 07:29] LABS: Magnesium 1.8 mg/dL (1.9-2.7)
[2021-07-10] MEDS: Mometasone/Formoter 200/5 MDI INH SCH ×2 (07:30→19:40)
[2021-07-10] MEDS ORDERED: Magnesium Sulfate 2 gm BAG 2 GM/50 ML BAG IVPB ONE (08:19)
[2021-07-10 08:43] LABS: Troponin I 0.06 ng/mL (<0.03)
[2021-07-10] MEDS ORDERED: Perflutren Lipid Microsphere 3 ML VIAL ONE (08:54)
[2021-07-10] MEDS ORDERED: Furosemide 40 mg/4 ml IV VIAL IV SCH (09:00)
[2021-07-10 20:10] LABS: Folate 9.12 ng/mL (5.90-24.80)
[2021-07-10 20:11] LABS: Vitamin B12 303 pg/mL (180-914)
[2021-07-10] MEDS: Enoxaparin 40 MG/0.4 ML SYR SUBCUT SCH (20:32)
[2021-07-10] MEDS ORDERED: Furosemide 40 mg/4 ml IV VIAL IV ONE (20:49)
[2021-07-11] MEDS ORDERED: Furosemide 40 mg/4 ml IV VIAL IV ONE (04:44)
[2021-07-11 05:15] LABS: PCO2 Arterial 55 mmHg (35-45); PO2 Arterial 96 mmHg (80-100)
[2021-07-11 05:49] LABS: ABS Eosinophils 0.1 10^3/ul (0-0.6); ABS Lymphocytes 0.8 10^3/ul (1.0-4.8); ABS Monocytes 0.7 10^3/ul (0-0.8); ABS Neutrophils 7.2 10^3/ul (1.5-7.7); Eosinophil % 0.8 %; Hematocrit 47 % (42-52); Hemoglobin 15.8 g/dL (14.0-18.0); Lymphocyte % 8.6 %; Mean Corpuscular HGB Conc 34 g/dL (31-36); Mean Corpuscular Hemoglobin 34 pg (27-31); Mean Corpuscular Volume 103 fL (80-94); Mean Platelet Volume 9.9 fL (7.4-10.4); Platelet Count 134 10^3/uL (150-450); Red Cell Distribution Width 15 % (10-15); White Blood Count 8.8 10^3/uL (3.5-10.8)
[2021-07-11 06:07] LABS: Calcium 9.2 mg/dL (8.6-10.3); Magnesium 2.1 mg/dL (1.9-2.7); Potassium 4.3 mmol/L (3.5-5.0); eGFR CKD-EPI 62.5 (>60)
[2021-07-11] MEDS: Mometasone/Formoter 200/5 MDI INH SCH ×2 (07:58→21:49)
[2021-07-11] MEDS: Nystatin TOP POWDER 15 GM BTL TOPICAL SCH ×2 (10:32→20:59)
[2021-07-11] MEDS: Enoxaparin 40 MG/0.4 ML SYR SUBCUT SCH (20:58)
[2021-07-12 07:02] LABS: ABS Lymphocytes 0.6 10^3/ul (1.0-4.8); ABS Monocytes 0.4 10^3/ul (0-0.8); ABS Neutrophils 5.6 10^3/ul (1.5-7.7); Eosinophil % 0.2 %; Hematocrit 48 % (42-52); Lymphocyte % 9.2 %; Mean Corpuscular HGB Conc 34 g/dL (31-36); Mean Corpuscular Hemoglobin 34 pg (27-31); Mean Corpuscular Volume 102 fL (80-94); Mean Platelet Volume 10.2 fL (7.4-10.4); Platelet Count 144 10^3/uL (150-450); Red Blood Count 4.68 10^6 /uL (4.18-5.48); Red Cell Distribution Width 14 % (10-15); White Blood Count 6.6 10^3/uL (3.5-10.8)
[2021-07-12 07:23] LABS: Blood Urea Nitrogen 29 mg/dL (6-24); CO2 Carbon Dioxide 34 mmol/L (22-32); Chloride 97 mmol/L (101-111); Glucose 116 mg/dL (70-100); Sodium 137 mmol/L (135-145); eGFR CKD-EPI 96.7 (>60)
[2021-07-12 08:09] LABS: Anion Gap 6 mmol/L (2-11)
[2021-07-12] MEDS: Mometasone/Formoter 200/5 MDI INH SCH ×2 (08:10→19:56)
[2021-07-12] MEDS: Nystatin TOP POWDER 15 GM BTL TOPICAL SCH ×2 (09:11→21:48)
[2021-07-12 12:03] LABS: Magnesium 2.1 mg/dL (1.9-2.7); Potassium Redraw 4.3 mmol/L (3.5-5.0)
[2021-07-12] MEDS ORDERED: Furosemide 20 mg/2 ml IV VIAL IV ONE (15:03)
[2021-07-12 16:57] LABS: CO2 Carbon Dioxide 30 mmol/L (22-32); Chloride 98 mmol/L (101-111); Sodium 131 mmol/L (135-145)
[2021-07-12 17:02] LABS: Blood Urea Nitrogen 28 mg/dL (6-24); Glucose 113 mg/dL (70-100); eGFR CKD-EPI 98.1 (>60)
[2021-07-12 17:26] LABS: Anion Gap 3 mmol/L (2-11)
[2021-07-12 19:51] LABS: Potassium Redraw 4.3 mmol/L (3.5-5.0)
[2021-07-12] MEDS: Enoxaparin 40 MG/0.4 ML SYR SUBCUT SCH (21:47)
[2021-07-13 06:15] LABS: Potassium 3.8 mmol/L (3.5-5.0); eGFR CKD-EPI 101.6 (>60)
[2021-07-13] MEDS: Nystatin TOP POWDER 15 GM BTL TOPICAL SCH ×2 (08:21→20:32)
[2021-07-13] MEDS: Mometasone/Formoter 200/5 MDI INH SCH ×2 (09:14→19:03)
[2021-07-13] MEDS ORDERED: Furosemide 20 mg/2 ml IV VIAL IV SLOW PU ONE (10:28)
[2021-07-13] MEDS: SPIRIVA Respimat (tiotropium) 2.5 mcg/inh Inhaler INH SCH (14:59)
[2021-07-13] MEDS: Enoxaparin 40 MG/0.4 ML SYR SUBCUT SCH (20:26)
[2021-07-14 06:32] LABS: Hematocrit 51 % (42-52); Hemoglobin 17.4 g/dL (14.0-18.0); Mean Corpuscular HGB Conc 34 g/dL (31-36); Mean Corpuscular Hemoglobin 34 pg (27-31); Mean Corpuscular Volume 101 fL (80-94); Mean Platelet Volume 9.5 fL (7.4-10.4); Platelet Count 165 10^3/uL (150-450); Red Cell Distribution Width 14 % (10-15); White Blood Count 6.8 10^3/uL (3.5-10.8)
[2021-07-14 06:35] LABS: ABS Monocytes 0.7 10^3/ul (0-0.8); ABS Neutrophils 5.1 10^3/ul (1.5-7.7); Eosinophil % 0.7 %; Lymphocyte % 14.3 %; Nucleated Red Blood Cells % 0.1
[2021-07-14 06:47] LABS: Calcium 9.4 mg/dL (8.6-10.3); Magnesium 1.9 mg/dL (1.9-2.7); eGFR CKD-EPI 98.8 (>60)
[2021-07-14] MEDS: Mometasone/Formoter 200/5 MDI INH SCH ×2 (07:28→20:08)
[2021-07-14] MEDS: SPIRIVA Respimat (tiotropium) 2.5 mcg/inh Inhaler INH SCH (07:28)
[2021-07-14] MEDS ORDERED: Furosemide 20 mg/2 ml IV VIAL IV ONE (09:17)
[2021-07-14] MEDS: Nystatin TOP POWDER 15 GM BTL TOPICAL SCH ×2 (09:59→21:06)
[2021-07-14] MEDS ORDERED: COVID-19 VACCINE, TRIS(PFIZER)/PF 30 MCG/0.3 ML IM ONE (15:00)
[2021-07-14] MEDS: Enoxaparin 40 MG/0.4 ML SYR SUBCUT SCH (21:06)
[2021-07-15 06:27] LABS: ABS Eosinophils 0.1 10^3/ul (0-0.6); ABS Lymphocytes 1.1 10^3/ul (1.0-4.8); ABS Monocytes 0.8 10^3/ul (0-0.8); Eosinophil % 0.8 %; Hematocrit 51 % (42-52); Hemoglobin 17.2 g/dL (14.0-18.0); Lymphocyte % 13.8 %; Mean Corpuscular HGB Conc 34 g/dL (31-36); Mean Corpuscular Hemoglobin 34 pg (27-31); Mean Corpuscular Volume 101 fL (80-94); Mean Platelet Volume 9.5 fL (7.4-10.4); Nucleated Red Blood Cells % 0.3; Platelet Count 195 10^3/uL (150-450); Red Blood Count 5.07 10^6 /uL (4.18-5.48); Red Cell Distribution Width 14 % (10-15)
[2021-07-15 06:43] LABS: Calcium 9.6 mg/dL (8.6-10.3); Potassium 4.5 mmol/L (3.5-5.0)
[2021-07-15] MEDS: SPIRIVA Respimat (tiotropium) 2.5 mcg/inh Inhaler INH SCH (07:16)
[2021-07-15] MEDS: Mometasone/Formoter 200/5 MDI INH SCH (07:17)
[2021-07-15] MEDS: Nystatin TOP POWDER 15 GM BTL TOPICAL SCH (08:39)
[2021-07-15 16:44] VITALS: BP 117/55
== END 2021-07-15 17:45 | disposition home or self-care (01) | DRG 720 ==
LOC: ED 19:18 → MEDTELE 23:26 → SUATTDRO 23:26 → MEDTELE 07-10 01:27
PROVIDERS: ADMIT Student in an Organized Health Care Education/Training Program; ATTEND Internal Medicine

== ENCOUNTER 2022-12-08 09:50 | Observation (INO) ==
[2022-12-08 13:13] LABS: ABS Basophils 0.1 10^3/uL (0.0-0.1); ABS Eosinophils 0.4 10^3/uL (0.0-0.5); ABS Lymphocytes 1.4 10^3/uL (1.0-4.8); ABS Monocytes 0.8 10^3/uL (0.0-1.1); ABS Neutrophils 5.7 10^3/uL (1.5-7.6); ABS Nucleated RBC 0.01 10^3/ul; Eosinophil % 4.2 %; Hematocrit 45.8 % (38-53); Hemoglobin 15.8 g/dL (13.2-16.3); Lymphocyte % 16.5 %; Mean Corpuscular Hemoglobin 33.2 pg (27-33); Mean Corpuscular Hgb Conc 34.4 g/dL (31-36); Mean Corpuscular Volume 96.4 fL (80-97); Mean Platelet Volume 8.7 fL (7.5-11.2); Nucleated Red Blood Cells % 0.1 /100 WBC (0.0-0.4); Platelet Count 289 10^3/uL (150-450); Red Blood Count 4.75 10^6/uL (4.06-5.63); Red Cell Distribution Width 14.3 % (12-17); White Blood Count 8.4 10^3/uL (3.6-10.2)
[2022-12-08 13:39] LABS: Albumin 3.8 g/dL (3.2-5.2); Albumin/Globulin Ratio 0.9 (1-3); C Reactive Protein 28.41 mg/L (<8.01); Calcium 9.8 mg/dL (8.6-10.3); Creatinine, Serum 0.69 mg/dL (0.67-1.17); Globulin 4.2 g/dL (2-4); Potassium 3.9 mmol/L (3.5-5.0); Total Bilirubin 0.7 mg/dL (0.2-1.0); eGFR CKD-EPI 102.7 (>60)
[2022-12-08 18:05] LABS: Erythrocyte Sed Rate 53 mm/Hr (0-19)
[2022-12-08] MEDS ORDERED: Vancomycin 1,000 MG in NS 0.9% 250 ml 250 ML IVPB ONE (18:45)
[2022-12-08] MEDS ORDERED: Vancomycin per Pharmacy 1 EA NOTE FOLLOW UP SCH (19:00)
[2022-12-08] MEDS ORDERED: Albuterol 2.5mg/3 ml (0.083%) NEB.SOLN INH PRN (19:28)
[2022-12-08] MEDS: Mometasone/Formoter 200/5 MDI INH SCH (21:27)
[2022-12-08] MEDS ORDERED: Vancomycin 1,750 MG in NS 0.9% 500 ml BAG 500 ML IVPB ONE (22:00)
[2022-12-08] MEDS: Enoxaparin 40 MG/0.4 ML SYR SUBCUT SCH (22:13)
[2022-12-09] MEDS: Cefepime 1 GM in Dextrose 1 GM/50 ML BAG IV SCH ×2 (01:03→15:05)
[2022-12-09 07:05] LABS: Hematocrit 41.3 % (38-53); Hemoglobin 14.4 g/dL (13.2-16.3); Mean Corpuscular Hgb Conc 34.8 g/dL (31-36); Mean Corpuscular Volume 97.7 fL (80-97); Mean Platelet Volume 8.3 fL (7.5-11.2); Platelet Count 272 10^3/uL (150-450); Red Blood Count 4.23 10^6/uL (4.06-5.63); Red Cell Distribution Width 14.5 % (12-17); White Blood Count 8.5 10^3/uL (3.6-10.2)
[2022-12-09 07:24] LABS: Creatinine, Serum 0.71 mg/dL (0.67-1.17); Potassium 4.1 mmol/L (3.5-5.0); eGFR CKD-EPI 101.8 (>60)
[2022-12-09] MEDS ORDERED: Vancomycin 1,500 MG in NS 0.9% 250 ml 250 ML IVPB SCH (10:00)
[2022-12-09] MEDS: Mometasone/Formoter 200/5 MDI INH SCH ×2 (13:13→19:15)
[2022-12-09] MEDS: Clotrimazole 1% CREAM 30 gm TOPICAL SCH (14:37)
[2022-12-09] MEDS: Enoxaparin 40 MG/0.4 ML SYR SUBCUT SCH (18:26)
[2022-12-09] MEDS: Ammonium Lactate 12% 1 APPLIC TUBE TOPICAL SCH (22:27)
[2022-12-10 06:23] LABS: Hematocrit 43.2 % (38-53); Hemoglobin 14.9 g/dL (13.2-16.3); Mean Corpuscular Hemoglobin 33.5 pg (27-33); Mean Corpuscular Hgb Conc 34.6 g/dL (31-36); Mean Corpuscular Volume 96.9 fL (80-97); Mean Platelet Volume 8.4 fL (7.5-11.2); Platelet Count 281 10^3/uL (150-450); Red Blood Count 4.46 10^6/uL (4.06-5.63); Red Cell Distribution Width 14.5 % (12-17)
[2022-12-10 06:39] LABS: C Reactive Protein 24.36 mg/L (<8.01); Calcium 9.2 mg/dL (8.6-10.3); Creatinine, Serum 0.77 mg/dL (0.67-1.17); Potassium 3.6 mmol/L (3.5-5.0); eGFR CKD-EPI 99.4 (>60)
[2022-12-10] MEDS: Mometasone/Formoter 200/5 MDI INH SCH (07:50)
[2022-12-10 07:52] LABS: Folate 11.57 ng/mL (5.90-24.80)
[2022-12-10] MEDS: Clotrimazole 1% CREAM 30 gm TOPICAL SCH (08:08)
[2022-12-10] MEDS: Ammonium Lactate 12% 1 APPLIC TUBE TOPICAL SCH (08:08)
[2022-12-10] MEDS ORDERED: Vancomycin Trough Check NOTE FOLLOW UP ONE (09:30)
[2022-12-10 14:34] VITALS: BP 125/88
== END 2022-12-10 18:15 | disposition home or self-care (01) ==
LOC: ED 09:50 → INTOOBSV 18:44 → EDHOLD 18:44 → SUATTDRO 18:44 → EDHOLD 12-09 11:33 → MED 12-09 13:19
PROVIDERS: ADMIT Hospitalist; ATTEND Internal Medicine

== ENCOUNTER 2024-06-28 09:38 | Inpatient (IN) ==
[2024-06-28] MEDS: Lactated Ringers 1000 ml BAG IV.FLUID IV ONE (10:44)
[2024-06-28 10:50] LABS: ABS Basophils 0.1 10^3/uL (0.0-0.1); ABS Eosinophils 0.2 10^3/uL (0.0-0.5); ABS Monocytes 0.6 10^3/uL (0.0-1.1); ABS Neutrophils 6.6 10^3/uL (1.5-7.6); ABS Nucleated RBC 0.02 10^3/ul; Eosinophil % 2.8 %; Hematocrit 50.2 % (38-53); Hemoglobin 17.1 g/dL (13.2-16.3); Lymphocyte % 11.9 %; Mean Corpuscular Hemoglobin 33.6 pg (27-33); Mean Corpuscular Hgb Conc 34.1 g/dL (31-36); Mean Corpuscular Volume 98.6 fL (80-97); Mean Platelet Volume 9.6 fL (7.5-11.2); Nucleated Red Blood Cells % 0.2 %/100WBC (0.0-0.8); Platelet Count 242 10^3/uL (150-450); Red Blood Count 5.09 10^6/uL (4.06-5.63); Red Cell Distribution Width 14.1 % (12-17); White Blood Count 8.5 10^3/uL (3.6-10.2)
[2024-06-28 11:16] LABS: ALT 15 U/L (7-52); Acetaminophen < 15 mcg/mL; Albumin 4.1 g/dL (3.5-5.7); Albumin/Globulin Ratio 1.1 (1-3); Alcohol, S < 13 mg/dL (<13); Alkaline Phosphatase 102 U/L (35-149); Anion Gap 7 mmol/L (2-16); Blood Urea Nitrogen 13 mg/dL (6-24); CO2 Carbon Dioxide 32 mmol/L (22-32); Calcium 9.5 mg/dL (8.6-10.3); Chloride 100 mmol/L (101-111); Creatinine, Serum 0.88 mg/dL (0.67-1.17); Globulin 3.8 g/dL (2-4); Glucose 111 mg/dL (70-100); Salicylate < 2.50 mg/dL (<30); Sodium 139 mmol/L (135-145); Total Bilirubin 1.2 mg/dL (0.2-1.0); Total Protein 7.9 g/dL (6.4-8.9); eGFR CKD-EPI 94.2 (>60)
[2024-06-28] MEDS: Furosemide 40 mg/4 ml IV VIAL IV SLOW PU ONE (13:12)
[2024-06-28 13:49] LABS: Urine Benzodiazepine Screen Presumptive Positive (None Detect); Urine Cannabinoids Screen None Detected (None Detect); Urine Opiates Screen None Detected (None Detect)
[2024-06-28 14:41] LABS: Potassium Redraw 4.2 mmol/L (3.5-5.0)
[2024-06-28 20:37] LABS: High Sensitivity Troponin 1 Hr 20 pg/mL (<20)
[2024-06-30] MEDS: Furosemide 40 mg/4 ml IV VIAL IV SLOW PU ONE (10:12)
[2024-06-30] MEDS: Sulfur Hexaflouride MICROSPHR 25 MG VIAL IV PRN (12:00)
[2024-06-30] MEDS ORDERED: Enoxaparin 40 MG/0.4 ML SYR SUBCUT SCH (13:00)
[2024-06-30] MEDS: Enoxaparin 40 MG/0.4 ML SYR SUBCUT SCH (18:10)
[2024-06-30] MEDS: Mometasone/Formoter 200/5 MDI INH SCH (20:42)
[2024-06-30] MEDS: Nystatin TOP POWDER 15 GM BTL TOPICAL SCH (22:35)
[2024-06-30] MEDS: Senna TAB 8.6 mg TAB PO SCH (22:35)
[2024-07-01 06:44] LABS: ABS Basophils 0.1 10^3/uL (0.0-0.1); ABS Eosinophils 0.4 10^3/uL (0.0-0.5); ABS Lymphocytes 1.4 10^3/uL (1.0-4.8); ABS Monocytes 0.9 10^3/uL (0.0-1.1); ABS Neutrophils 6.2 10^3/uL (1.5-7.6); ABS Nucleated RBC 0.01 10^3/ul; Eosinophil % 4.5 %; Hematocrit 52.7 % (38-53); Hemoglobin 18.1 g/dL (13.2-16.3); Mean Corpuscular Hgb Conc 34.4 g/dL (31-36); Mean Corpuscular Volume 98.8 fL (80-97); Mean Platelet Volume 9.7 fL (7.5-11.2); Nucleated Red Blood Cells % 0.1 %/100WBC (0.0-0.8); Platelet Count 229 10^3/uL (150-450); Red Blood Count 5.33 10^6/uL (4.06-5.63)
[2024-07-01 07:01] LABS: Calcium 9.3 mg/dL (8.6-10.3); Creatinine, Serum 0.94 mg/dL (0.67-1.17); Magnesium 1.8 mg/dL (1.9-2.7); Potassium 3.9 mmol/L (3.5-5.0); eGFR CKD-EPI 88.9 (>60)
[2024-07-01] MEDS: Potassium Chlor 20 meq TAB.ER PO ONE (11:29)
[2024-07-01] MEDS: Magnesium Sulfate IV 1GM/100ML 1 GM/100 ML BAG IV ONE (11:29)
[2024-07-01] MEDS: Furosemide 40 mg/4 ml IV VIAL IV ONE (16:05)
[2024-07-03 06:37] LABS: Calcium 9.4 mg/dL (8.6-10.3); Creatinine, Serum 1.06 mg/dL (0.67-1.17); Potassium 3.9 mmol/L (3.5-5.0); eGFR CKD-EPI 76.9 (>60)
[2024-07-05 07:21] LABS: Calcium 9.1 mg/dL (8.6-10.3); Creatinine, Serum 0.83 mg/dL (0.67-1.17); Potassium 4.1 mmol/L (3.5-5.0); eGFR CKD-EPI 95.9 (>60)
[2024-07-06] MEDS: Furosemide 40 mg/4 ml IV VIAL IV ONE (13:23)
[2024-07-06 14:45] LABS: Calcium 9.3 mg/dL (8.6-10.3); Creatinine, Serum 0.86 mg/dL (0.67-1.17); Magnesium 1.9 mg/dL (1.9-2.7); Potassium 4.5 mmol/L (3.5-5.0); eGFR CKD-EPI 94.9 (>60)
[2024-07-07 06:59] LABS: Calcium 9.2 mg/dL (8.6-10.3); Creatinine, Serum 0.92 mg/dL (0.67-1.17); Phosphorus 3.8 mg/dL (2.5-5.0); Potassium 4.2 mmol/L (3.5-5.0); eGFR CKD-EPI 91.2 (>60)
[2024-07-07 09:53] VITALS: BP 148/61
[2024-07-07] MEDS: Saline NASAL SPRAY 0.65% BTL BOTH NARES PRN (13:38)
== END 2024-07-07 14:00 | disposition home or self-care (01) | DRG 291 ==
LOC: EDHOLD 09:38 → ED 09:38 → MED 06-30 14:38 → SUATTDRO 06-30 15:39
PROVIDERS: ADMIT Student in an Organized Health Care Education/Training Program; ATTEND Internal Medicine